=== PATIENT | female | born 1980 | race Caucasian/White ===

== ENCOUNTER 2018-05-14 05:41 | Emergency (ER) | payer OTHER ==
[2018-05-14] MEDS: ACETAMINOPHEN 500 MG TAB PO (06:23)
[2018-05-14] MEDS: morphine 4 MG/ML VIAL IV ×2 (07:13→07:44)
[2018-05-14] MEDS: SOD CHLORIDE 0.9% 1,000 ML IV (07:24)
[2018-05-14] MEDS: METOCLOPRAMIDE 10 MG INJ IV (07:24)
[2018-05-14 07:37] LABS: ADD MAN DIFF? NO
[2018-05-14 07:39] LABS: BASOPHILS % 0.2 % (0.0-2.0); EOSINOPHILS % 0.2 % (0.0-7.0); HEMATOCRIT 34.2 % (37.0-47.0); HEMOGLOBIN 11.2 g/dl (12.0-16.0); LYMPHOCYTES # 1.4 10^3/ul (0.8-2.9); LYMPHOCYTES % 14.8 % (15.0-51.0); MEAN CORPUSCULAR HGB CONC 32.7 g/dl (32.0-37.0); MEAN CORPUSCULAR VOLUME 88.6 fl (82.0-101.0); MEAN PLATELET VOLUME 9.8 fl (7.4-10.4); MONOCYTE # 0.6 10^3/ul (0.3-0.9); MONOCYTES % 6.5 % (0.0-11.0); NEUTROPHIL # 7.2 10^3/ul (1.6-7.5); NEUTROPHILS % 77.9 % (39.0-77.0); PLATELET COUNT 238 10^3/UL (140-415); RED BLOOD COUNT 3.86 10^6/ul (4.20-5.40)
[2018-05-14 07:39] LABS: WHITE BLOOD COUNT 9.2 10^3/ul (4.8-10.8)
[2018-05-14 07:57] LABS: ADD UMIC YES; ALANINE AMINOTRANSFERASE 31 IU/L (13-69); ALBUMIN 3.8 g/dl (3.3-4.9); ALBUMIN/GLOBULIN RATIO 1.22; ALKALINE PHOSPHATASE 85 IU/L (42-121); ANION GAP 12 (8-16); ASPARTATE AMINO TRANSFERASE 25 IU/L (15-46); BILIRUBIN,INDIRECT 0.5 mg/dl (0-1.1); BILIRUBIN,TOTAL 0.5 mg/dl (0.2-1.3); BLOOD UREA NITROGEN 8 mg/dl (7-20); CALCIUM 9.3 mg/dl (8.4-10.2); CARBON DIOXIDE 21 mmol/L (21-31); CHLORIDE 111 mmol/L (97-110); GLUCOSE 110 mg/dl (70-220); LIPASE 55 U/L (23-300); POTASSIUM 3.7 mmol/L (3.5-5.1); SODIUM 140 mmol/L (135-144); TOTAL PROTEIN 6.9 g/dl (6.1-8.1); UR ASCORBIC ACID NEGATIVE (NEGATIVE); UR BACTERIA FEW /HPF (NONE SEEN); UR BILIRUBIN (Dip) NEGATIVE (NEGATIVE); UR BLOOD (Dip) NEGATIVE (NEGATIVE); UR CALCIUM OXALATE CRYSTAL MODERATE /HPF (NONE SEEN); UR CLARITY CLOUDY (CLEAR); UR COLOR YELLOW (YELLOW); UR GLUCOSE (Dip) NEGATIVE (NEGATIVE); UR KETONES (Dip) TRACE mg/dL (NEGATIVE); UR LEUKOCYTE ESTERASE (Dip) 2+ Leu/ul (NEGATIVE); UR MUCUS FEW /HPF (NONE SEEN); UR NITRITE (Dip) NEGATIVE (NEGATIVE); UR RBC 10 /HPF (0-5); UR SPECIFIC GRAVITY (Dip) 1.013 (1.003-1.030); UR SQUAMOUS EPITHELIAL CELL MODERATE /HPF (FEW); UR TOTAL PROTEIN (Dip) NEGATIVE (NEGATIVE); UR UROBILINOGEN (Dip) NEGATIVE (NEGATIVE); UR WBC 9 /HPF (0-5)
== END 2018-05-14 10:27 | disposition home or self-care (01) ==
LOC: FTE 05:41 → E/R 10:27
DX: O26.832 Pregnancy related renal disease, second trimester (principal); N23 Unspecified renal colic; Z3A.19 19 weeks gestation of pregnancy
CPT/HCPCS: 76775; 76805; 80053; 81001; 83690; 84702; 85025; 86900; 86901; 87086; 96374; 96375; 96376; 99285-25

== ENCOUNTER 2018-05-16 09:09 | Emergency (ER) | payer OTHER ==
[2018-05-16] MEDS: SOD CHLORIDE 0.9% 1,000 ML IV (09:37)
[2018-05-16 09:49] LABS: ADD MAN DIFF? NO
[2018-05-16] MEDS: morphine 4 MG/ML VIAL IV (09:50)
[2018-05-16 09:52] LABS: WHITE BLOOD COUNT 10.4 10^3/ul (4.8-10.8)
[2018-05-16 09:52] LABS: BASOPHILS % 0.1 % (0.0-2.0); EOSINOPHILS % 0.4 % (0.0-7.0); HEMATOCRIT 33.5 % (37.0-47.0); HEMOGLOBIN 10.9 g/dl (12.0-16.0); LYMPHOCYTES # 1.3 10^3/ul (0.8-2.9); LYMPHOCYTES % 12.6 % (15.0-51.0); MEAN CORPUSCULAR HEMOGLOBIN 28.2 pg (29.0-33.0); MEAN CORPUSCULAR HGB CONC 32.5 g/dl (32.0-37.0); MEAN CORPUSCULAR VOLUME 86.8 fl (82.0-101.0); MEAN PLATELET VOLUME 9.7 fl (7.4-10.4); MONOCYTE # 0.6 10^3/ul (0.3-0.9); MONOCYTES % 5.7 % (0.0-11.0); NEUTROPHIL # 8.4 10^3/ul (1.6-7.5); NEUTROPHILS % 80.6 % (39.0-77.0); PLATELET COUNT 238 10^3/UL (140-415); RED BLOOD COUNT 3.86 10^6/ul (4.20-5.40); RED CELL DISTRIBUTION WIDTH 15.5 % (11.5-14.5)
[2018-05-16 10:01] LABS: ADD UMIC YES; UR ASCORBIC ACID NEGATIVE (NEGATIVE); UR BACTERIA FEW /HPF (NONE SEEN); UR BILIRUBIN (Dip) NEGATIVE (NEGATIVE); UR BLOOD (Dip) 1+ mg/dL (NEGATIVE); UR CLARITY SLIGHTLY CLOUDY (CLEAR); UR COLOR YELLOW (YELLOW); UR GLUCOSE (Dip) NEGATIVE (NEGATIVE); UR KETONES (Dip) NEGATIVE (NEGATIVE); UR LEUKOCYTE ESTERASE (Dip) 1+ Leu/ul (NEGATIVE); UR MUCUS MANY /HPF (NONE SEEN); UR NITRITE (Dip) NEGATIVE (NEGATIVE); UR NONSQUAMOUS EPITHELIAL CELL 2 /HPF (NONE SEEN); UR RBC 26 /HPF (0-5); UR SPECIFIC GRAVITY (Dip) 1.017 (1.003-1.030); UR SQUAMOUS EPITHELIAL CELL FEW /HPF (FEW); UR TOTAL PROTEIN (Dip) NEGATIVE (NEGATIVE); UR UROBILINOGEN (Dip) 1+ mg/dL (NEGATIVE); UR WBC 8 /HPF (0-5)
[2018-05-16 10:11] LABS: ALANINE AMINOTRANSFERASE 34 IU/L (13-69); ALBUMIN 3.5 g/dl (3.3-4.9); ALBUMIN/GLOBULIN RATIO 1.16; ALKALINE PHOSPHATASE 69 IU/L (42-121); ANION GAP 12 (8-16); ASPARTATE AMINO TRANSFERASE 36 IU/L (15-46); BILIRUBIN,INDIRECT 0.4 mg/dl (0-1.1); BILIRUBIN,TOTAL 0.4 mg/dl (0.2-1.3); BLOOD UREA NITROGEN 7 mg/dl (7-20); CALCIUM 9.3 mg/dl (8.4-10.2); CARBON DIOXIDE 19 mmol/L (21-31); CHLORIDE 111 mmol/L (97-110); CREATININE 0.49 mg/dl (0.44-1.00); GLUCOSE 105 mg/dl (70-220); LIPASE 85 U/L (23-300); POTASSIUM 4.3 mmol/L (3.5-5.1); SODIUM 138 mmol/L (135-144); TOTAL PROTEIN 6.5 g/dl (6.1-8.1)
== END 2018-05-16 15:31 | disposition home or self-care (01) ==
LOC: E/R 09:09 → FTE 15:31
DX: O26.892 Other specified pregnancy related conditions, second trimester (principal); R10.11 Right upper quadrant pain; Z3A.19 19 weeks gestation of pregnancy
CPT/HCPCS: 36415; 72195; 74181; 76705; 80053; 81001; 83690; 84702; 85025; 96361; 96374; 99285-25

== ENCOUNTER → 2018-05-20 20:00 | Inpatient (IN) | payer OTHER ==
[2018-05-17] MEDS: ACETAMINOPHEN 325 MG TAB PO ×3 (13:46→23:05)
[2018-05-17 13:49] LABS: ADD UMIC YES; UR ASCORBIC ACID NEGATIVE (NEGATIVE); UR BACTERIA FEW /HPF (NONE SEEN); UR BILIRUBIN (Dip) NEGATIVE (NEGATIVE); UR BLOOD (Dip) 1+ mg/dL (NEGATIVE); UR CLARITY SLIGHTLY CLOUDY (CLEAR); UR COLOR YELLOW (YELLOW); UR GLUCOSE (Dip) NEGATIVE (NEGATIVE); UR KETONES (Dip) 1+ mg/dL (NEGATIVE); UR LEUKOCYTE ESTERASE (Dip) TRACE Leu/ul (NEGATIVE); UR MUCUS MANY /HPF (NONE SEEN); UR NITRITE (Dip) NEGATIVE (NEGATIVE); UR RBC 16 /HPF (0-5); UR SPECIFIC GRAVITY (Dip) 1.018 (1.003-1.030); UR SQUAMOUS EPITHELIAL CELL FEW /HPF (FEW); UR TOTAL PROTEIN (Dip) NEGATIVE (NEGATIVE); UR UROBILINOGEN (Dip) 1+ mg/dL (NEGATIVE); UR WBC 8 /HPF (0-5)
[2018-05-17] MEDS: LACTATED RINGER'S 1,000 ML IV (15:26)
[2018-05-17] MEDS: CEFAZOLIN 2 GM/50 ML (PMX) 50 ML IV ×2 (15:26→22:21)
[2018-05-17 15:52] LABS: WHITE BLOOD COUNT 5.8 10^3/ul (4.8-10.8)
[2018-05-17 15:52] LABS: ABNORMAL IP MESSAGE 1; HEMATOCRIT 31.4 % (37.0-47.0); HEMOGLOBIN 10.4 g/dl (12.0-16.0); MEAN CORPUSCULAR HEMOGLOBIN 29.3 pg (29.0-33.0); MEAN CORPUSCULAR HGB CONC 33.1 g/dl (32.0-37.0); MEAN CORPUSCULAR VOLUME 88.5 fl (82.0-101.0); MEAN PLATELET VOLUME 9.9 fl (7.4-10.4); NUCLEATED RED BLOOD CELLS% 0.3 /100WBC (0.0-0.0); PLATELET COUNT 249 10^3/UL (140-415); RED BLOOD COUNT 3.55 10^6/ul (4.20-5.40); RED CELL DISTRIBUTION WIDTH 15.2 % (11.5-14.5)
[2018-05-17 15:54] LABS: ADD MAN DIFF? YES; POSITIVE DIFF @See below
[2018-05-17 16:16] LABS: BAND NEUTROPHILS #M 0.1 10^3/ul (0.0-0.6); BAND NEUTROPHILS % (M) 2 % (0-4); LYMPHOCYTES #M 0.5 10^3/ul (0.8-2.9); LYMPHOCYTES % (M) 10 % (15-51); MONOCYTE #M 0.1 10^3/ul (0.3-0.9); MONOCYTES % (M) 3 % (0-11); PLATELET ESTIMATE NORMAL; SEG NEUT #M 4.9 10^3/ul (1.6-7.5); SEGMENTED NEUTROPHILS (M) % 85 % (39-77); SMUDGE%M 2 % (0-0)
[2018-05-17] MEDS: FERROUS SULFATE (EC) 325 MG TAB PO (22:20)
[2018-05-18] MEDS: LACTATED RINGER'S 1,000 ML IV ×4 (00:23→22:50)
[2018-05-18] MEDS: CEFAZOLIN 2 GM/50 ML (PMX) 50 ML IV ×3 (06:04→21:54)
[2018-05-18] MEDS: ACETAMINOPHEN 325 MG TAB PO ×2 (08:42→15:08)
[2018-05-18] MEDS: PRENATAL VITAMIN PO (08:43)
[2018-05-18] MEDS: DOCUSATE SODIUM 100 MG CAP PO (08:44)
[2018-05-18] MEDS: FERROUS SULFATE (EC) 325 MG TAB PO ×2 (08:44→21:54)
[2018-05-18] MEDS: OXYCODONE/ACETAMINOPHEN (5/325) TAB PO (16:57)
[2018-05-19] MEDS: OXYCODONE/ACETAMINOPHEN (5/325) TAB PO ×2 (01:52→07:16)
[2018-05-19] MEDS: LACTATED RINGER'S 1,000 ML IV ×2 (06:04→14:38)
[2018-05-19] MEDS: CEFAZOLIN 2 GM/50 ML (PMX) 50 ML IV ×2 (06:04→13:26)
[2018-05-19] MEDS: FERROUS SULFATE (EC) 325 MG TAB PO ×2 (09:22→21:11)
[2018-05-19] MEDS: PRENATAL VITAMIN PO (09:22)
[2018-05-19] MEDS: DOCUSATE SODIUM 100 MG CAP PO (09:22)
[2018-05-19] MEDS: ACETAMINOPHEN 325 MG TAB PO (15:52)
[2018-05-19] MEDS: CEPHALEXIN 500 MG CAP PO (21:59)
[2018-05-20] MEDS: ACETAMINOPHEN 325 MG TAB PO ×3 (00:07→10:11)
[2018-05-20] MEDS: CEPHALEXIN 500 MG CAP PO ×2 (05:48→14:28)
[2018-05-20] MEDS: DOCUSATE SODIUM 100 MG CAP PO (08:43)
[2018-05-20] MEDS: FERROUS SULFATE (EC) 325 MG TAB PO (08:43)
[2018-05-20] MEDS: PRENATAL VITAMIN PO (08:43)
[~2018-05-20 20:00] MED LIST: FERROUS SULFATE (EC) 325 MG TAB PO; OXYCODONE/ACETAMINOPHEN (5/325) TAB PO; PRENATAL VITAMIN PO
== END | disposition home or self-care (01) | DRG 781 ==
DX: O23.02 Infections of kidney in pregnancy, second trimester (principal); Z3A.19 19 weeks gestation of pregnancy
CPT/HCPCS: 81001; 85025; 87086

== ENCOUNTER 2019-06-22 07:57 | Emergency (ER) | payer OTHER ==
[2019-06-22 08:38] LABS: ADD MAN DIFF? NO
[2019-06-22 08:42] LABS: WHITE BLOOD COUNT 8.1 10^3/ul (4.8-10.8)
[2019-06-22 08:43] LABS: BASOPHILS % 0.1 % (0.0-2.0); EOSINOPHILS # 0.1 10^3/ul (0.0-0.5); EOSINOPHILS % 0.6 % (0.0-7.0); HEMATOCRIT 39.3 % (37.0-47.0); HEMOGLOBIN 12.1 g/dl (12.0-16.0); LYMPHOCYTES # 2.1 10^3/ul (0.8-2.9); LYMPHOCYTES % 26.4 % (15.0-51.0); MEAN CORPUSCULAR HEMOGLOBIN 24.9 pg (29.0-33.0); MEAN CORPUSCULAR HGB CONC 30.8 g/dl (32.0-37.0); MEAN PLATELET VOLUME 9.5 fl (7.4-10.4); MONOCYTE # 0.5 10^3/ul (0.3-0.9); MONOCYTES % 5.6 % (0.0-11.0); NEUTROPHIL # 5.4 10^3/ul (1.6-7.5); NEUTROPHILS % 67.1 % (39.0-77.0); PLATELET COUNT 293 10^3/UL (140-415); RED BLOOD COUNT 4.85 10^6/ul (4.20-5.40); RED CELL DISTRIBUTION WIDTH 14.6 % (11.5-14.5)
[2019-06-22 09:07] LABS: ADD UMIC YES; UR ASCORBIC ACID NEGATIVE (NEGATIVE); UR BILIRUBIN (Dip) NEGATIVE (NEGATIVE); UR BLOOD (Dip) 3+ mg/dL (NEGATIVE); UR CLARITY SLIGHTLY CLOUDY (CLEAR); UR COLOR YELLOW (YELLOW); UR GLUCOSE (Dip) NEGATIVE (NEGATIVE); UR KETONES (Dip) NEGATIVE (NEGATIVE); UR LEUKOCYTE ESTERASE (Dip) NEGATIVE Leu/ul (NEGATIVE); UR MUCUS MANY /HPF (NONE SEEN); UR NITRITE (Dip) NEGATIVE (NEGATIVE); UR RBC > 182 /HPF (0-5); UR SPECIFIC GRAVITY (Dip) 1.028 (1.003-1.030); UR SQUAMOUS EPITHELIAL CELL FEW /HPF (FEW); UR TOTAL PROTEIN (Dip) NEGATIVE (NEGATIVE); UR UROBILINOGEN (Dip) NEGATIVE (NEGATIVE); UR WBC 2 /HPF (0-5)
== END 2019-06-22 10:25 | disposition home or self-care (01) ==
LOC: FTE 07:57
DX: O20.0 Threatened abortion (principal); Z3A.01 Less than 8 weeks gestation of pregnancy
CPT/HCPCS: 36415; 76801; 76817; 81001; 84702; 85025; 86900; 86901; 99284-25

== ENCOUNTER 2019-06-24 06:15 | Emergency (ER) | payer OTHER | END 2019-06-24 07:53 | disposition home or self-care (01) | LOC: FTE 06:15 | DX: O03.9 Complete or unspecified spontaneous abortion without complication (principal) | CPT/HCPCS: 36415; 84702; 99283 ==